=== PATIENT | male | born 1975 ===

== ENCOUNTER 2023-09-19 12:31 | Emergency (ER) | payer SELFPAY | END 2023-09-19 14:18 | disposition left against medical advice (07) | LOC: ER 12:32 | DX: R04.2 Hemoptysis (principal); M79.676 Pain in unspecified toe(s); Z53.21 Procedure and treatment not carried out due to patient leaving prior to being seen by health care provider ==

== ENCOUNTER 2023-10-09 09:56 | Emergency (ER) | payer MEDICARE ==
[~2023-10-09] VITALS: Ht 167.6 cm; Wt 75.0 kg
[2023-10-09 10:25] LABS: BASOPHILS # (AUTO) 0.1 X10'3 (0-0.2); BASOPHILS % (AUTO) 1.3 % (0-1); EOSINOPHILS % (AUTO) 0.3 % (0-6); HEMATOCRIT 39.5 % (42.0-52.0); HEMOGLOBIN 13.3 g/dl (14.0-17.9); LYMPHOCYTES # (AUTO) 1.1 X10'3 (1.1-4.8); MEAN CORPUSCULAR HEMOGLOBIN 31.5 PG (27.0-31.0); MEAN CORPUSCULAR HGB CONC 33.8 g/dL (33.0-36.5); MEAN CORPUSCULAR VOLUME 93.4 FL (78-98); MONOCYTES # (AUTO) 0.7 X10'3 (0-0.9); MONOCYTES % (AUTO) 12.7 % (2-12); NEUTROPHILS # (AUTO) 3.8 X10'3 (1.8-7.7); NEUTROPHILS % (AUTO) 66.7 % (42-75); PLATELET COUNT 240 X10'3 (140-440); RED BLOOD COUNT 4.23 X10'6 (4.70-6.10); RED CELL DISTRIBUTION WIDTH 14.4 % (11.5-14.5); WHITE BLOOD COUNT 5.7 X10'3 (4.5-11.0)
[2023-10-09 10:50] LABS: ALBUMIN 3.7 G/DL (3.4-5.0); ANION GAP 9 (8-16); BLOOD UREA NITROGEN 28 MG/DL (7-18); BUN/CREATININE RATIO 32.9 (10.0-20.0); CALCIUM 8.7 MG/DL (8.5-10.1); CHLORIDE 103 MMOL/L (99-107); CREATININE 0.85 MG/DL (0.60-1.10); ETHANOL < 10 MG/DL (<10); GLUCOSE 77 MG/DL (70-104); POTASSIUM 3.5 MMOL/L (3.5-5.1); SODIUM 140 MMOL/L (135-145); THYROID STIMULATING HORMONE 0.94 ulU/ml (0.34-4.50); TOTAL CARBON DIOXIDE 28.5 MMOL/L (24-32); eGFR > 90 ML/MIN
[2023-10-09] MEDS: diphenhydrAMINE 50 mg/ml inj IM ONE (11:11)
[2023-10-09] MEDS: haloperidol lactate 5mg/ml inj IM ONE (11:11)
[2023-10-09] MEDS: diazepam inj 5 MG/ML inj. IV ONE (11:11)
[2023-10-09 20:24] LABS: BILIRUBIN,URINE NEGATIVE (Neg); CLARITY,URINE CLEAR (Clear); COLOR,URINE YELLOW (Yellow); GLUCOSE, URINE NEGATIVE (Neg); KETONES,URINE TRACE mg/dl (Neg); LEUKOCYTE ESTERASE ,URINE NEGATIVE (Neg); NITRITES, URINE NEGATIVE (Neg); OCCULT BLOOD,URINE NEGATIVE (Neg); PROTEIN,URINE NEGATIVE (Neg); UROBILINOGEN,URINE 0.2 E.U/dL (0.2-1.0)
[2023-10-09 20:29] LABS: UA COLLECTION TYPE CLN CATCH MIDSTREAM
[2023-10-09 20:38] LABS: URINE AMPHETAMINE SCREEN POSITIVE (Neg); URINE BARBITUATE SCREEN NEGATIVE (Neg); URINE BENZODIAZEPINES SCREEN POSITIVE (Neg); URINE CANNABINOID SCREEN POSITIVE (Neg); URINE COCAINE SCREEN NEGATIVE (Neg); URINE METHADONE SCREEN NEGATIVE (Neg); URINE PHENCYCLIDINE SCREEN NEGATIVE (Neg)
[2023-10-09] MEDS ORDERED: HYDR25CA PO (22:07)
[2023-10-09] MEDS ORDERED: PANT-47 PO (22:10)
[2023-10-10 04:27] VITALS: RESP 12
[2023-10-10 06:15] VITALS: BP 107/72; PULSE 64; TEMP 97.9; O2SAT 97
[2023-10-10] MEDS ORDERED: pantoprazole 40mg Tablet.DR PO SCH (07:30)
[2023-10-10] MEDS ORDERED: hydrOXYzine 25 MG tablet PO SCH (08:00)
[2023-10-10] MEDS ORDERED: haloperidol decanoate***LONG-ACTING*** 100mg/ml **IM only** inj. IM ONE (08:45)
[2023-10-10] MEDS ORDERED: diazepam inj 5 MG/ML inj. IM ONE (08:45)
[2023-10-10] MEDS ORDERED: diphenhydrAMINE 50 mg/ml inj IM ONE (08:45)
[2023-10-10] MEDS ORDERED: haloperidol decanoate 50mg/ml 1ml**long-acting** injection IM ONE (08:55)
[2023-10-10] MEDS ORDERED: haloperidol lactate 5mg/ml inj IM ONE (09:00)
[2023-10-10] MEDS ORDERED: olanzapine 10mg tablet PO ONE (10:25)
[2023-10-10] MEDS ORDERED: olanzapine 10mg tablet PO SCH (20:00)
== END 2023-10-10 11:00 | disposition home or self-care (01) ==
LOC: ER 09:56
DX: F23 Brief psychotic disorder (principal); Z20.822 Contact with and (suspected) exposure to COVID-19; F17.200 Nicotine dependence, unspecified, uncomplicated; F15.90 Other stimulant use, unspecified, uncomplicated
CPT/HCPCS: 36415; 80048; 80305; 80320; 81003; 84443; 85025; 87811; 96372; 96374; 99285; J1200; J1630; J3360

== ENCOUNTER 2023-10-15 04:18 | Emergency (ER) | payer MEDICARE ==
[~2023-10-15] VITALS: Ht 180.3 cm; Wt 57.8 kg
[~2023-10-15 04:18] MED LIST: HYDR25CA PO; PANT-47 PO
[2023-10-15 04:25] VITALS: BP 125/75; PULSE 84; RESP 16; TEMP 98.3; O2SAT 98
== END 2023-10-15 05:12 | disposition left against medical advice (07) ==
LOC: ER 04:19
DX: Z47.2 Encounter for removal of internal fixation device (principal); Z53.21 Procedure and treatment not carried out due to patient leaving prior to being seen by health care provider